=== PATIENT | male | born 1940 | race Caucasian/White ===

== ENCOUNTER 2024-12-19 21:07 | Inpatient (IN) | payer MEDICARE ==
[~2024-12-19] VITALS: Ht 180.3 cm; Wt 108.9 kg
[2024-12-19 21:38] LABS: PLATELET COUNT (AUTO) 175 K/uL (150-450); RED BLOOD CELL COUNT(AUTO) 4.59 MIL/uL (4.5-6.0); RED CELL DISTRIBUTION WIDTH 15.1 % (11.5-15.0); WHITE BLOOD COUNT (AUTO) 5.5 K/uL (4.3-11.0)
[2024-12-19] MEDS: IV NS 0.9% 500 ML BAG IV ONE (21:47)
[2024-12-19 21:48] LABS: CALCIUM, SERUM 8.4 mg/dL (8.5-10.1); CREATININE 0.8 mg/dL (0.6-1.3); SODIUM SERUM 148 mmol/L (136-145); UREA NITROGEN, BLOOD 8 mg/dL (7-18)
[2024-12-19] MEDS ORDERED: CEFEPIME 1 GM VIAL ONE (21:50)
[2024-12-19] MEDS ORDERED: Magnesium 1GM/D5W 100ML PREMIX 200 ML IV ONE (21:50)
[2024-12-19 21:52] LABS: INR 1.04 (0.91-1.10)
[2024-12-19 21:55] LABS: LACTIC ACID 1.7 mmol/L (0.4-2.0)
[2024-12-19 21:59] VITALS: O2SAT 97
[2024-12-19] MEDS: ALBUTEROL FS 2.5 MG/3 ML VIAL.NEB NEB ONE (21:59)
[2024-12-19] MEDS: IPRATROPIUM NEB FS 0.5 MG/2.5 ML AMPUL.NEB NEB ONE (21:59)
[2024-12-19 22:02] LABS: ASPARTATE AMINOTRANSFERASE 26 U/L (15-37); TOTAL PROTEIN, SERUM 5.4 g/dL (6.4-8.2)
[2024-12-19] MEDS ORDERED: IPRATROPIUM NEB FS 0.5 MG/2.5 ML AMPUL.NEB ONE (22:04)
[2024-12-19] MEDS ORDERED: ALBUTEROL FS 2.5 MG/3 ML VIAL.NEB ONE (22:04)
[2024-12-19] MEDS: Magnesium 1GM/D5W 100ML PREMIX 200 ML IV ONE (22:07)
[2024-12-19] MEDS: CEFEPIME 1 GM in IV D5W 50 ML IV ONE (22:08)
[2024-12-19 22:29] LABS: APPEARANCE,URINE CLEAR (CLEAR); BLOOD, URINE NEGATIVE Ery/uL (NEGATIVE); LEUKOCYTE ESTERASE ,URINE TRACE (NEGATIVE); NITRITE, URINE NEGATIVE (NEGATIVE); UGLUCOSE NEGATIVE (NEGATIVE)
[2024-12-19 22:42] LABS: ADD URINE CULTURE NO; SQUAMOUS EPITHELIAL CELL,UR None Seen /HPF (None Seen)
[2024-12-19 22:59] VITALS: O2SAT 99
[2024-12-19] MEDS ORDERED: IPRATROPIUM NEB FS 0.5 MG/2.5 ML AMPUL.NEB NEB PRN (23:00)
[2024-12-19] MEDS ORDERED: HYDROCODONE/APAP 5/325MG TABLET PO PRN (23:00)
[2024-12-19] MEDS ORDERED: MAG HYDROX/AL HYDROX/SIMETH 30 ML UDC PO PRN (23:00)
[2024-12-19] MEDS ORDERED: ALBUTEROL FS 2.5 MG/3 ML VIAL.NEB NEB PRN (23:00)
[2024-12-19] MEDS ORDERED: ONDANSETRON HCL/PF 4 MG/2 ML VIAL IVP PRN (23:00)
[2024-12-19] MEDS ORDERED: MAGNESIUM HYDROXIDE 30 ML UDC PO PRN (23:00)
[2024-12-19 23:30] LABS: ABG BASE EXCESS 0.1 mmol/L (-2.0-3.0); ABG OXYGEN SATURATION 95.3 % (94.0-98.0); ABG PCO2 48.0 mmHg (35.0-48.0); ABG PH 7.354 (7.350-7.450); ABG PO2 81.4 mmHg (83.0-108.0); ABG TOTAL HEMOGLOBIN 14.0 G/dL (13.5-17.5); FLOW, BLOOD GAS 5.00 L/min (0.00-30.00); FRACTIONATED INSPIRED OXYGEN 40.0 %; SITE, ABG LEFT RADIAL
[2024-12-20 02:00] VITALS: BP 98/55; TEMP 98.6; O2SAT 93
[2024-12-20 04:00] VITALS: BP 94/62; TEMP 97.8; O2SAT 98
[2024-12-20] MEDS: PANTOPRAZOLE 40 MG TABLET.DR PO SCH (07:30)
[2024-12-20 07:53] LABS: PLATELET COUNT (AUTO) 187 K/uL (150-450); RED BLOOD CELL COUNT(AUTO) 4.33 MIL/uL (4.5-6.0); RED CELL DISTRIBUTION WIDTH 14.9 % (11.5-15.0); WHITE BLOOD COUNT (AUTO) 3.7 K/uL (4.3-11.0)
[2024-12-20 08:00] VITALS: BP 100/54; TEMP 97.9; O2SAT 94
[2024-12-20 08:03] LABS: CALCIUM, SERUM 8.2 mg/dL (8.5-10.1); CREATININE 1.0 mg/dL (0.6-1.3); PHOSPHORUS 3.1 mg/dL (2.5-4.9); SODIUM SERUM 146.0 mmol/L (136-145); UREA NITROGEN, BLOOD 11.0 mg/dL (7-18)
[2024-12-20 08:13] LABS: LDL 75.0 mg/dL (0-99)
[2024-12-20] MEDS: FUROSEMIDE 40 MG/4 ML VIAL IV SCH (08:58)
[2024-12-20] MEDS: CEFEPIME 1 GM in IV D5W 50 ML IV SCH (08:58)
[2024-12-20] MEDS: Z GUARD REMEDY 4 OZ OINT TP PRN (08:59)
[2024-12-20] MEDS ORDERED: DOXYCYCLINE 100 MG in IV D5W 100 ML IV SCH (09:00)
[2024-12-20 16:00] VITALS: BP 104/66; TEMP 98.5; O2SAT 94
[2024-12-20 20:00] VITALS: BP 122/71; TEMP 97.7; O2SAT 95
[2024-12-21 04:00] VITALS: BP 104/68; TEMP 98.2; O2SAT 94
[2024-12-21 08:00] VITALS: BP 113/73; TEMP 98.6; O2SAT 96
[2024-12-21] MEDS: ACETAMINOPHEN 325 MG TABLET PO PRN (08:41)
[2024-12-21] MEDS ORDERED: TAMS-12 PO (08:48)
[2024-12-21] MEDS ORDERED: QUET25TA PO (08:48)
[2024-12-21] MEDS ORDERED: PSYL3.4P6 PO (08:48)
[2024-12-21] MEDS ORDERED: MAG30ORA PO (08:48)
[2024-12-21] MEDS ORDERED: ATOR80TA PO (08:48)
[2024-12-21] MEDS ORDERED: PANT40TA49 PO (08:48)
[2024-12-21] MEDS ORDERED: METO25TA6 PO (08:48)
[2024-12-21] MEDS ORDERED: APIX2.5T PO (08:48)
[2024-12-21] MEDS ORDERED: HYDR-3972 PO (08:48)
[2024-12-21] MEDS ORDERED: IPRA3AMP23 IH (08:48)
[2024-12-21] MEDS ORDERED: ACET325T53 PO (08:48)
[2024-12-21] MEDS ORDERED: LORA-259 PO (08:48)
[2024-12-21] MEDS ORDERED: PRED20TA PO (10:09)
[2024-12-21] MEDS ORDERED: AZIT250T13 PO (10:09)
[2024-12-21 10:47] VITALS: O2SAT 95
[2024-12-21 10:57] VITALS: O2SAT 95
== END 2024-12-21 16:01 | disposition home health service (06) | DRG 190 ==
LOC: ER 21:17 → TELE-TD 12-20 00:23 → TELE1 12-20 01:34 → MEDSG1 12-20 09:33
PROVIDERS: ADMIT Nurse Practitioner Acute Care; ATTEND Internal Medicine
DX: J44.1 Chronic obstructive pulmonary disease with (acute) exacerbation (principal); G93.41 Metabolic encephalopathy; J96.01 Acute respiratory failure with hypoxia; I50.33 Acute on chronic diastolic (congestive) heart failure; E66.2 Morbid (severe) obesity with alveolar hypoventilation; I69.351 Hemiplegia and hemiparesis following cerebral infarction affecting right dominant side; F01.53 Vascular dementia, unspecified severity, with mood disturbance; I11.0 Hypertensive heart disease with heart failure; E78.5 Hyperlipidemia, unspecified; F32.A Depression, unspecified; N40.0 Benign prostatic hyperplasia without lower urinary tract symptoms; Z66 Do not resuscitate; I48.0 Paroxysmal atrial fibrillation; F03.90 Unspecified dementia, unspecified severity, without behavioral disturbance, psychotic disturbance, mood disturbance, and anxiety; F41.9 Anxiety disorder, unspecified; Z68.33 Body mass index [BMI] 33.0-33.9, adult; Z20.822 Contact with and (suspected) exposure to COVID-19
CPT/HCPCS: 36415; 36600; 71045-TC; 80048-TC; 80061-TC; 80076-TC; 81001; 83605-TC; 83735-TC; 83880; 84100-TC; 84443-TC; 84484-TC; 85025-TC; 85730-TC; 87040-TC; 87086-TC; 92526; 92611; 93307-TC; A4223; A6213; G0378; J0692; J1938; J2919; J3475; J7040; J7060

== ENCOUNTER 2024-12-30 10:04 | Inpatient (IN) | payer MEDICARE ==
[~2024-12-30] VITALS: Ht 193 cm; Wt 111.6 kg
[~2024-12-30 10:04] MED LIST: ACET325T53 PO; APIX2.5T PO; ATOR80TA PO; AZIT250T13 PO; HYDR-3972 PO; IPRA3AMP23 IH; LORA-259 PO; MAG30ORA PO; METO25TA6 PO; PANT40TA49 PO; PRED20TA PO; PSYL3.4P6 PO; QUET25TA PO; TAMS-12 PO
[2024-12-30 10:57] LABS: PLATELET COUNT (AUTO) 172 K/uL (150-450); RED BLOOD CELL COUNT(AUTO) 5.03 MIL/uL (4.5-6.0); RED CELL DISTRIBUTION WIDTH 14.7 % (11.5-15.0); WHITE BLOOD COUNT (AUTO) 6.4 K/uL (4.3-11.0)
[2024-12-30 11:06] LABS: CALCIUM, SERUM 9.1 mg/dL (8.5-10.1); CREATININE 0.9 mg/dL (0.6-1.3); SODIUM SERUM 144 mmol/L (136-145); UREA NITROGEN, BLOOD 9 mg/dL (7-18)
[2024-12-30 11:11] LABS: ASPARTATE AMINOTRANSFERASE 31 U/L (15-37); TOTAL PROTEIN, SERUM 6.1 g/dL (6.4-8.2)
[2024-12-30 11:16] LABS: LACTIC ACID 3.1 mmol/L (0.4-2.0)
[2024-12-30] MEDS ORDERED: IPRATROPIUM NEB FS 0.5 MG/2.5 ML AMPUL.NEB ONE (11:38)
[2024-12-30] MEDS ORDERED: ALBUTEROL FS 2.5 MG/3 ML VIAL.NEB ONE (11:38)
[2024-12-30 11:42] VITALS: O2SAT 97
[2024-12-30] MEDS: IPRATROPIUM NEB FS 0.5 MG/2.5 ML AMPUL.NEB NEB ONE (11:42)
[2024-12-30] MEDS: ALBUTEROL FS 2.5 MG/3 ML VIAL.NEB NEB ONE (11:42)
[2024-12-30 11:58] VITALS: O2SAT 99
[2024-12-30] MEDS ORDERED: CEFTRIAXONE 1GM BAG (ER ONLY) 50 ML IV ONE (12:33)
[2024-12-30] MEDS: CEFTRIAXONE 1 G in IV D5W 50 ML IV ONE (12:36)
[2024-12-30] MEDS ORDERED: ONDANSETRON HCL/PF 4 MG/2 ML VIAL IVP PRN (13:00)
[2024-12-30] MEDS ORDERED: MAG HYDROX/AL HYDROX/SIMETH 30 ML UDC PO PRN ×2 (13:00)
[2024-12-30] MEDS ORDERED: AZITHROMYCIN 250 MG TABLET PO SCH (13:00)
[2024-12-30] MEDS ORDERED: ZOLPIDEM TARTRATE 5 MG TABLET PO PRN (13:00)
[2024-12-30] MEDS ORDERED: ENOXAPARIN SODIUM 40 MG/0.4 ML DISP.SYRIN SQ SCH (13:00)
[2024-12-30] MEDS ORDERED: ACETAMINOPHEN 325 MG TABLET PO PRN ×2 (13:00)
[2024-12-30] MEDS ORDERED: HYDROCODONE/APAP 5/325MG TABLET PO PRN (13:00)
[2024-12-30] MEDS ORDERED: MAGNESIUM HYDROXIDE 30 ML UDC PO PRN (13:00)
[2024-12-30] MEDS ORDERED: Z GUARD REMEDY 4 OZ OINT TP PRN (13:00)
[2024-12-30] MEDS: QUETIAPINE FUMARATE 25 MG TABLET PO SCH (17:42)
[2024-12-30] MEDS: METOPROLOL TARTRATE 25 MG TABLET PO SCH (17:42)
[2024-12-30] MEDS: TAMSULOSIN 0.4 MG CAP.SR.24H PO SCH (17:42)
[2024-12-30] MEDS: APIXABAN 2.5 MG TABLET PO SCH (17:45)
[2024-12-30 18:32] VITALS: BP 145/79; TEMP 97.5; O2SAT 95
[2024-12-30] MEDS: IV NS 0.9% 1,000 ML BAG IV PRN (19:54)
[2024-12-30 20:06] VITALS: BP 124/71; TEMP 97.9; O2SAT 95
[2024-12-30] MEDS: AZITHROMYCIN 500 MG in IV D5W 250 ML IV SCH (20:14)
[2024-12-30] MEDS: ATORVASTATIN 40 MG TABLET PO SCH (21:44)
[2024-12-30] MEDS: OLANZAPINE 10 MG VIAL IM ONE (23:37)
[2024-12-31] VITALS (11 sets, daily range): BP systolic 109–134; BP diastolic 57–78; TEMP 98–98.6; O2SAT 94–99
[2024-12-31] MEDS: LORAZEPAM 1 MG TABLET PO PRN (04:46)
[2024-12-31] MEDS: PANTOPRAZOLE 40 MG TABLET.DR PO SCH (06:34)
[2024-12-31 06:59] LABS: PLATELET COUNT (AUTO) 155 K/uL (150-450); RED BLOOD CELL COUNT(AUTO) 4.37 MIL/uL (4.5-6.0); RED CELL DISTRIBUTION WIDTH 14.6 % (11.5-15.0); WHITE BLOOD COUNT (AUTO) 12.5 K/uL (4.3-11.0)
[2024-12-31 07:01] LABS: CALCIUM, SERUM 9.1 mg/dL (8.5-10.1); CREATININE 1.0 mg/dL (0.6-1.3); PHOSPHORUS 2.6 mg/dL (2.5-4.9); SODIUM SERUM 146.0 mmol/L (136-145); UREA NITROGEN, BLOOD 12.0 mg/dL (7-18)
[2024-12-31] MEDS: ALBUTEROL FS 2.5 MG/3 ML VIAL.NEB CONTNEB SCH (07:35)
[2024-12-31] MEDS: IPRATROPIUM NEB FS 0.5 MG/2.5 ML AMPUL.NEB NEB SCH (07:35)
[2024-12-31] MEDS ORDERED: PSYL822P6 PO (07:39)
[2024-12-31] MEDS: PSYLLIUM SEED 1 PKT PACKET PO SCH (08:38)
[2024-12-31 09:30] LABS: ABG BASE EXCESS 0.6 mmol/L (-2.0-3.0); ABG OXYGEN SATURATION 96.4 % (94.0-98.0); ABG PCO2 29.8 mmHg (35.0-48.0); ABG PH 7.499 (7.350-7.450); ABG PO2 80.8 mmHg (83.0-108.0); ABG TOTAL HEMOGLOBIN 15.2 G/dL (13.5-17.5); FRACTIONATED INSPIRED OXYGEN 21.0 %; SITE, ABG RIGHT RADIAL
[2024-12-31] MEDS: IV NS 0.9% 1,000 ML IV PRN (12:12)
[2024-12-31] MEDS: OLANZAPINE 10 MG VIAL IM ONE (14:28)
[2024-12-31] MEDS: CEFTRIAXONE 1 G in IV D5W 50 ML IV SCH (14:47)
[2024-12-31] MEDS ORDERED: QUETIAPINE FUMARATE 25 MG TABLET PO PRN (17:30)
[2024-12-31] MEDS: OXCARBAZEPINE 150 MG TABLET PO SCH (18:15)
[2024-12-31] MEDS: QUETIAPINE FUMARATE 25 MG TABLET PO SCH (21:47)
[2024-12-31] MEDS: OLANZAPINE 10 MG VIAL IM PRN (22:51)
[2025-01-01] VITALS (12 sets, daily range): BP systolic 118–146; BP diastolic 49–89; TEMP 97.7–98.3; O2SAT 93–99
[2025-01-01 07:19] LABS: PLATELET COUNT (AUTO) 171 K/uL (150-450); RED BLOOD CELL COUNT(AUTO) 4.54 MIL/uL (4.5-6.0); RED CELL DISTRIBUTION WIDTH 15.5 % (11.5-15.0); WHITE BLOOD COUNT (AUTO) 16.1 K/uL (4.3-11.0)
[2025-01-01 08:01] LABS: ASPARTATE AMINOTRANSFERASE 20.0 U/L (15-37); CALCIUM, SERUM 8.7 mg/dL (8.5-10.1); CREATININE 0.7 mg/dL (0.6-1.3); PHOSPHORUS 3.3 mg/dL (2.5-4.9); SODIUM SERUM 148.0 mmol/L (136-145); TOTAL PROTEIN, SERUM 5.3 g/dL (6.4-8.2); UREA NITROGEN, BLOOD 15.0 mg/dL (7-18)
[2025-01-01] MEDS: QUETIAPINE FUMARATE 25 MG TABLET PO SCH (08:39)
[2025-01-01] MEDS: POTASSIUM CHLORIDE 20 MEQ TAB.PRT.SR PO SCH (10:33)
[2025-01-02] VITALS (13 sets, daily range): BP systolic 118–135; BP diastolic 77–95; TEMP 97.7; O2SAT 92–98
[2025-01-02 07:40] LABS: PLATELET COUNT (AUTO) 140 K/uL (150-450); RED BLOOD CELL COUNT(AUTO) 4.27 MIL/uL (4.5-6.0); RED CELL DISTRIBUTION WIDTH 15.3 % (11.5-15.0); WHITE BLOOD COUNT (AUTO) 9.5 K/uL (4.3-11.0)
[2025-01-02 08:25] LABS: ASPARTATE AMINOTRANSFERASE 20.0 U/L (15-37); CALCIUM, SERUM 8.3 mg/dL (8.5-10.1); CREATININE 0.6 mg/dL (0.6-1.3); PHOSPHORUS 3.5 mg/dL (2.5-4.9); SODIUM SERUM 149.0 mmol/L (136-145); TOTAL PROTEIN, SERUM 4.8 g/dL (6.4-8.2); UREA NITROGEN, BLOOD 16.0 mg/dL (7-18)
[2025-01-02] MEDS ORDERED: AZIT500T PO (12:23)
== END 2025-01-02 19:30 | disposition hospice, home (50) | DRG 191 ==
LOC: ER 10:07 → TELE1 13:11 → MEDSG1 12-31 08:23
PROVIDERS: ADMIT Student in an Organized Health Care Education/Training Program
DX: J44.1 Chronic obstructive pulmonary disease with (acute) exacerbation (principal); E44.0 Moderate protein-calorie malnutrition; G93.49 Other encephalopathy; E87.20 Acidosis, unspecified; I50.9 Heart failure, unspecified; I48.0 Paroxysmal atrial fibrillation; E66.2 Morbid (severe) obesity with alveolar hypoventilation; I69.351 Hemiplegia and hemiparesis following cerebral infarction affecting right dominant side; F01.53 Vascular dementia, unspecified severity, with mood disturbance; I11.0 Hypertensive heart disease with heart failure; F32.A Depression, unspecified; F29 Unspecified psychosis not due to a substance or known physiological condition; F01.54 Vascular dementia, unspecified severity, with anxiety; F01.52 Vascular dementia, unspecified severity, with psychotic disturbance; E78.5 Hyperlipidemia, unspecified; Z79.01 Long term (current) use of anticoagulants; N40.0 Benign prostatic hyperplasia without lower urinary tract symptoms; Z87.891 Personal history of nicotine dependence; F41.9 Anxiety disorder, unspecified; Z68.29 Body mass index [BMI] 29.0-29.9, adult
CPT/HCPCS: 36415; 71045-TC; 80048-TC; 80053-TC; 80076-TC; 82803-TC; 83605-TC; 83735-TC; 83880; 84100-TC; 84484-TC; 85025-TC; 85378-TC; 87040-TC; 87081-TC; 94760-TC; 94799-TC; A4223; G0378; J0456; J0696; J1650; J2919; J3490; J7030; J7040; J7060